=== PATIENT | male | born 1945 | race American Indian/Alaskan Native ===

== ENCOUNTER 2018-01-26 17:25 | Inpatient (IN) | payer MEDICARE ==
[2018-01-26] MEDS ORDERED: NACL 0.9% 500 ML 500 ML ONE (17:57)
[2018-01-26] MEDS ORDERED: NACL 0.9% 1000 ML 500 ML IV ONE (17:59)
[2018-01-26 18:39] LABS: Basophils # (Auto) 0.1 K/mm3 (0.0-0.1); Basophils % (Auto) 2.3 % (0.0-1.8); Eosinophils % (Auto) 1.4 % (0.0-4.3); Hematocrit 34.6 % (35.5-45.6); Hemoglobin 11.4 gm/dl (11.8-15.2); Lymphocytes # (Auto) 0.9 K/mm3 (1.2-5.4); Mean Corpuscular HGB Conc 33 % (32-34); Mean Corpuscular Hemoglobin 26 pg (28-32); Mean Corpuscular Volume 80 fl (84-94); Monocytes # (Auto) 0.3 K/mm3 (0.0-0.8); Monocytes % (Auto) 10.2 % (0.0-7.3); Platelet Count 115 K/mm3 (140-440); Red Blood Count 4.32 M/mm3 (3.65-5.03)
[2018-01-26 18:50] LABS: INR 1.07 (0.87-1.13)
[2018-01-26 18:57] LABS: Calcium 9.1 mg/dL (8.4-10.2)
[2018-01-26] MEDS ORDERED: NACL 0.9% 1000 ML 1,000 ML IV ONE (19:05)
--- NOTE | 2018-01-26 19:08 | Emergency Department Report ---
ED General Adult HPI - General Chief complaint: Dizziness Stated complaint: HEADACHE/DIZZIENESS Time Seen by Provider: 01/26/18 17:56 Source: patient, EMS Mode of arrival: Stretcher Limitations: No Limitations - History of Present Illness Initial comments: This is a 72-year-old male that was sent from his outpatient clinic for evaluation of hypotension and bradycardia. He had a EKG in the clinic which showed sinus bradycardia and PVCs and bigeminy. He states that he has been feeling weak and has had intermittent headaches since the peak metoprolol on Friday. He attributes his symptoms to metoprolol. He is also on Bumex lisinopril and HCTZ. He has a known cardiomyopathy. He does not complain of chest pain or shortness of breath. He does not complain of fever or chills. He denies any chest or abdominal pain. -: days(s) Location: head Radiation: non-radiation Quality: aching Consistency: intermittent, now resolved Improves with: none Worsens with: none Associated Symptoms: weakness - Related Data Home Medications Medication Instructions Recorded Confirmed Last Taken Carvedilol 12.5 mg PO DAILY 02/25/14 02/25/14 02/24/14 08:00 12.5mg Metformin HCl [Metformin] 1,000 mg PO BID 02/25/14 02/25/14 02/24/14 21:00 1000mg Quinapril HCl 20 mg PO DAILY 02/25/14 02/25/14 02/24/14 08:00 20mg Simvastatin 40 mg PO DAILY 02/25/14 02/25/14 02/24/14 08:00 40mg Allergies Allergy/AdvReac Type Severity Reaction Status Date / Time No Known Allergies Allergy Verified 02/25/14 06:21 ED Review of Systems ROS: Stated complaint: HEADACHE/DIZZIENESS Other details as noted in HPI Constitutional: weakness. denies: chills, fever Eyes: denies: eye pain, eye discharge, vision change ENT: denies: ear pain, throat pain Respiratory: denies: cough, shortness of breath, wheezing Cardiovascular: denies: chest pain, palpitations Endocrine: no symptoms reported Gastrointestinal: denies: abdominal pain, nausea, diarrhea Genitourinary: denies: urgency, dysuria Musculoskeletal: other (states chronic ankle ulcer which is painful). denies: back pain, joint swelling, arthralgia Skin: denies: rash, lesions Neurological: headache. denies: weakness, paresthesias Psychiatric: denies: anxiety, depression Hematological/Lymphatic: denies: easy bleeding, easy bruising ED Past Medical Hx - Past Medical History Hx Hypertension: Yes Hx Heart Attack/AMI: Yes Hx Diabetes: Yes Hx of Cancer: Yes (leukemia, prostate) Hx Arthritis: Yes Additional medical history: Peripheral vascular disease - Surgical History Hx Coronary Stent: Yes - Social History Smoking Status: Never Smoker Substance Use Type: None - Medications Home Medications: Home Medications Medication Instructions Recorded Confirmed Last Taken Type Carvedilol 12.5 mg PO DAILY 02/25/14 02/25/14 02/24/14 08:00 History 12.5mg Metformin HCl [Metformin] 1,000 mg PO BID 02/25/14 02/25/14 02/24/14 21:00 History 1000mg Quinapril HCl 20 mg PO DAILY 02/25/14 02/25/14 02/24/14 08:00 History 20mg Simvastatin 40 mg PO DAILY 02/25/14 02/25/14 02/24/14 08:00 History 40mg ED Physical Exam - General Limitations: No Limitations General appearance: alert, in no apparent distress - Head Head exam: Present: atraumatic, normocephalic - Eye Eye exam: Present: normal appearance, PERRL, EOMI. Absent: scleral icterus - ENT ENT exam: Present: mucous membranes moist - Neck Neck exam: Present: normal inspection. Absent: tenderness, meningismus - Respiratory Respiratory exam: Present: normal lung sounds bilaterally. Absent: respiratory distress - Cardiovascular Cardiovascular Exam: Present: regular rate, normal rhythm. Absent: systolic murmur, diastolic murmur, rubs, gallop - GI/Abdominal GI/Abdominal exam: Present: soft, normal bowel sounds. Absent: distended, tenderness, guarding, rebound, rigid - Rectal Rectal exam: Present: deferred - Extremities Exam Extremities exam: Present: other (postinflammatory hyperpigmentation of the affected ankle. Diminished peripheral pulses. No evidence of acute ischemia.) - Back Exam Back exam: Present: normal inspection - Neurological Exam Neurological exam: Present: alert, oriented X3 - Psychiatric Psychiatric exam: Present: normal affect, normal mood - Skin Skin exam: Present: warm, dry, intact, normal color. Absent: rash ED Course Vital Signs 01/26/18 01/26/18 01/26/18 17:33 17:36 17:45 Temperature 97.9 F Pulse Rate 72 64 66 Respiratory 12 15 Rate Blood Pressure 85/51 62/42 O2 Sat by Pulse 99 97 Oximetry 01/26/18 01/26/18 01/26/18 18:01 18:15 18:30 Temperature Pulse Rate 96 H 90 81 Respiratory 11 L 16 17 Rate Blood Pressure 78/45 77/45 O2 Sat by Pulse 96 99 97 Oximetry 01/26/18 01/26/18 01/26/18 18:45 19:00 19:15 Temperature Pulse Rate 69 67 67 Respiratory 18 16 16 Rate Blood Pressure 72/44 72/44 O2 Sat by Pulse 99 98 98 Oximetry 01/26/18 01/26/18 19:31 19:45 Temperature Pulse Rate 63 65 Respiratory 13 16 Rate Blood Pressure 70/47 70/47 O2 Sat by Pulse 97 100 Oximetry - Reevaluation(s) Reevaluation #1: The patient is receiving a volume bolus. His chest x-ray does not reveal decompensation so I believe this should be well tolerated. It is a possibility that he may need a pressor. I have discussed the case with Dr. Gómez who is available for central line placement if necessary. The patient will be admitted by the hospitalist for further care and evaluation. A CT of his head is also pending for his complaint of headache. He was found to be neurologically intact. 01/26/18 20:35 ED Medical Decision Making - Lab Data Result diagrams: 01/26/18 18:17 01/26/18 18:17 Laboratory Results - last 24 hr 01/26/18 01/26/18 01/26/18 18:17 18:17 18:17 WBC 2.6 L RBC 4.32 Hgb 11.4 L Hct 34.6 L MCV 80 L MCH 26 L MCHC 33 RDW 16.0 H Plt Count 115 L Lymph % (Auto) 36.0 H Henry % (Auto) 10.2 H Eos % (Auto) 1.4 Baso % (Auto) 2.3 H Lymph # 0.9 L Henry # 0.3 Eos # 0.0 Baso # 0.1 Seg Neutrophils % 50.1 Seg Neutrophils # 1.3 L PT 14.5 INR 1.07 APTT 30.0 Sodium 137 Potassium 4.5 Chloride 100.2 Carbon Dioxide 21 L Anion Gap 20 BUN 25 H Creatinine 1.7 H Estimated GFR 48 BUN/Creatinine Ratio 15 Glucose 90 Lactic Acid Calcium 9.1 Troponin T 0.034 H 01/26/18 18:17 WBC RBC Hgb Hct MCV MCH MCHC RDW Plt Count Lymph % (Auto) Henry % (Auto) Eos % (Auto) Baso % (Auto) Lymph # Henry # Eos # Baso # Seg Neutrophils % Seg Neutrophils # PT INR APTT Sodium Potassium Chloride Carbon Dioxide Anion Gap BUN Creatinine Estimated GFR BUN/Creatinine Ratio Glucose Lactic Acid 1.70 Calcium Troponin T - EKG Data -: EKG Interpreted by Me EKG shows normal: sinus rhythm - EKG Data Interpretation: other (EKG here shows normal sinus rhythm with not infrequent ectopy and some couplets. Temperature ventricular conduction delay) - Radiology Data interpreted by me: Chest x-ray no acute process Critical care attestation.: If time is entered above; I have spent that time in minutes in the direct care of this critically ill patient, excluding procedure time. ED Disposition Clinical Impression: Pancytopenia, Renal insufficiency Hypotension Qualifiers: Hypotension type: other hypotension type Qualified Code(s): I95.89 - Other hypotension Leukemia Qualifiers: Leukemia type: unspecified Leukemia Active/Remission status: in remission Qualified Code(s): C95.91 - Leukemia, unspecified, in remission Disposition: DC-09 OP ADMIT IP TO THIS HOSP Is pt being admited?: Yes Does the pt Need Aspirin: No (hold aspirin for now low platelets CT head pending ) Condition: Stable Referrals: PRIMARY CARE, [Primary Care Provider] - 3-5 Days Time of Disposition: 20:38
--- NOTE | 2018-01-26 19:20 | XRay Report ---
FINAL REPORT EXAM: XR CHEST 1V AP HISTORY: hypotension TECHNIQUE: Frontal chest x-ray was performed Comparison: None FINDINGS: Normal heart size. Underlying emphysema. Aorta is atheromatous. No focal infiltrates. Upper lobe bullous disease. Imaged axial skeleton is unremarkable. IMPRESSION: Bullous emphysema. No acute cardiopulmonary disease.
[2018-01-26 19:53] LABS: Alanine Aminotransferase 23 units/L (7-56); Albumin 3.9 g/dL (3.9-5); Chol/HDL Ratio 3.36 %
[2018-01-26 19:54] LABS: Bilirubin,Direct < 0.2 mg/dL (0-0.2)
[2018-01-26] MEDS ORDERED: NACL 0.9% 1000 ML 2,000 ML IV ONE (20:32)
--- NOTE | 2018-01-26 21:40 | Cat Scan Report ---
FINAL REPORT PROCEDURE: CT HEAD/BRAIN WO CON TECHNIQUE: Computerized tomography of the head was performed without contrast material. HISTORY: headache COMPARISON: No prior studies are available for comparison. FINDINGS: Skull and scalp: Normal. Paranasal sinuses: Normal. Ventricles and subarachnoid spaces: Are prominent consistent with cerebral atrophy appropriate for patient's age.. Cerebrum: No evidence of hemorrhage, acute infarction or mass . Cerebellum and brainstem: No evidence of hemorrhage, acute infarction or mass. Vasculature: Atherosclerotic calcification is noted involving bilateral internal carotid and right vertebral arteries.. Comments: None. IMPRESSION: No acute intracranial abnormality
[2018-01-27] MEDS ORDERED: TYLENOL ONE (00:04)
[2018-01-27] MEDS ORDERED: TYLENOL PO ONE (00:39)
[2018-01-27 01:36] LABS: Bacteria,Urine 1+ /HPF (Negative); Bilirubin,Urine NEG (Negative); Blood,Urine NEG (Negative); Color,Urine Yellow (Yellow); Mucus,Urine FEW /HPF; Protein,Urine <15 mg/dL mg/dL (Negative); Urobilinogen,Urine < 2.0 mg/dL (<2.0)
[2018-01-27] MEDS ORDERED: TYLENOL PO PRN (01:37)
[2018-01-27] MEDS ORDERED: SODIUM CHLORIDE FLUSH SYRINGE 10 ML IV PRN (01:37)
[2018-01-27] MEDS ORDERED: ZOFRAN IV PRN (01:37)
[2018-01-27] MEDS ORDERED: D50W (25GM) Syringe IV PRN (01:45)
[2018-01-27] MEDS ORDERED: NACL 0.9% 1000 ML 1,000 ML IV SCH (02:00)
--- NOTE | 2018-01-27 05:49 | History and Physical Report ---
History of Present Illness Date of examination: 01/27/18 Date of admission: 01/27/18 01:37 Chief complaint: Low blood pressure History of present illness: Patient is a 72 year old -[place] male with history of hypertension and cardiomyopathy who was sent from his outpatient clinic for evaluation of hypotension and bradycardia. He had an EKG in the clinic which showed sinus bradycardia, PVCs and bigeminy. He states that he has been feeling weak and has had intermittent headaches, LT sided chest pain, sob, palpitations and cough. He attributes his symptoms to the new medication, metoprolol, which he started few days ago. He is also on Bumex, lisinopril and HCTZ. Past History Past Medical History: arthritis, CAD, diabetes, hypertension, other (leukemia and prostate cancer) Past Surgical History: Other (cardiac stent placement) Social history: smoking (quit 15 years ago. He denies alcohol or illicit drug use) Family history: other (reviewed and noncontributory) Medications and Allergies Allergies Allergy/AdvReac Type Severity Reaction Status Date / Time No Known Allergies Allergy Verified 02/25/14 06:21 Home Medications Medication Instructions Recorded Confirmed Last Taken Type Acetaminophen [Tylenol] 500 mg PO Q4HR PRN 01/26/18 01/26/18 Unknown History Albuterol Sulfate [Ventolin HFA] 2 puff IH Q4H PRN 01/26/18 01/26/18 Unknown History Aspirin 81 mg PO DAILY 01/26/18 01/26/18 Unknown History Bumetanide 2 mg PO DAILY PRN 01/26/18 01/26/18 Unknown History Lisinopril/Hydrochlorothiazide 1 tab PO QDAY 01/26/18 01/26/18 Unknown History [Zestoretic 20-25 mg] Metoprolol [Lopressor] 25 mg PO BID 01/26/18 01/26/18 Unknown History Nitroglycerin 0.4 mg SL Q15M PRN MDD 3 01/26/18 01/26/18 Unknown History Pantoprazole [Protonix] 40 mg PO QDAY 01/26/18 01/26/18 Unknown History glipiZIDE [Glipizide] 5 mg PO DAILY 01/26/18 01/26/18 Unknown History metFORMIN [Glucophage] 1,000 mg PO BID 01/26/18 01/26/18 Unknown History tiZANidine [Zanaflex] 4 mg PO TID PRN 01/26/18 01/26/18 Unknown History Active Meds: Active Medications Acetaminophen (Tylenol) 650 mg PO Q4H PRN PRN Reason: Pain MILD(1-3)/Fever >100.5/WHITEHEAD Dextrose (D50w (25gm) Syringe) 50 ml IV PRN PRN PRN Reason: Hypoglycemia Enoxaparin Sodium (Lovenox) 30 mg SUB-Q QDAY ABBEY Sodium Chloride (Nacl 0.9% 1000 Ml) 1,000 mls @ 100 mls/hr IV DIRECT ABBEY Last Admin: 01/27/18 03:12 Dose: 100 mls/hr Insulin Glargine (Lantus) 10 units SUB-Q QHS ABBEY Insulin Human Regular (Humulin R) 0 units SUB-Q ACHS ABBEY; Protocol Ondansetron HCl (Zofran) 4 mg IV Q8H PRN PRN Reason: Nausea And Vomiting Sodium Chloride (Sodium Chloride Flush Syringe 10 Ml) 10 ml IV BID ABBEY Sodium Chloride (Sodium Chloride Flush Syringe 10 Ml) 10 ml IV PRN PRN PRN Reason: LINE FLUSH Review of Systems All systems: negative (except as documented in the HPI, all other systems were reviewed and negative) Exam - Constitutional Vitals: Temp Pulse Resp BP Pulse Ox 97.9 F 97 H 19 110/73 98 01/26/18 17:33 01/27/18 04:31 01/27/18 04:31 01/27/18 04:31 01/27/18 04:31 General appearance: Present: no acute distress - EENT Eyes: Present: PERRL, EOM intact ENT: hearing intact - Neck Neck: Present: supple - Respiratory Respiratory effort: normal Respiratory: bilateral: CTA - Cardiovascular Rhythm: other (bradycardia with regular rhythm) Heart Sounds: Present: S1 & S2. Absent: rub, click - Extremities Extremities: No edema - Abdominal General gastrointestinal: Present: soft, non-tender, non-distended, normal bowel sounds - Integumentary Integumentary: Present: clear, warm, dry - Musculoskeletal Musculoskeletal: gait normal, strength equal bilaterally - Psychiatric Psychiatric: appropriate mood/affect, intact judgment & insight - Neurologic Neurologic: CNII-XII intact, moves all extremities Results - Labs CBC & Chem 7: 01/26/18 18:17 01/26/18 18:17 Labs: Laboratory Last Values WBC 2.6 K/mm3 (4.5-11.0) L 01/26/18 18:17 RBC 4.32 M/mm3 (3.65-5.03) 01/26/18 18:17 Hgb 11.4 gm/dl (11.8-15.2) L 01/26/18 18:17 Hct 34.6 % (35.5-45.6) L 01/26/18 18:17 MCV 80 fl (84-94) L 01/26/18 18:17 MCH 26 pg (28-32) L 01/26/18 18:17 MCHC 33 % (32-34) 01/26/18 18:17 RDW 16.0 % (13.2-15.2) H 01/26/18 18:17 Plt Count 115 K/mm3 (140-440) L 01/26/18 18:17 Lymph % (Auto) 36.0 % (13.4-35.0) H 01/26/18 18:17 Ness % (Auto) 10.2 % (0.0-7.3) H 01/26/18 18:17 Eos % (Auto) 1.4 % (0.0-4.3) 01/26/18 18:17 Baso % (Auto) 2.3 % (0.0-1.8) H 01/26/18 18:17 Lymph # 0.9 K/mm3 (1.2-5.4) L 01/26/18 18:17 Ness # 0.3 K/mm3 (0.0-0.8) 01/26/18 18:17 Eos # 0.0 K/mm3 (0.0-0.4) 01/26/18 18:17 Baso # 0.1 K/mm3 (0.0-0.1) 01/26/18 18:17 Seg Neutrophils % 50.1 % (40.0-70.0) 01/26/18 18:17 Seg Neutrophils # 1.3 K/mm3 (1.8-7.7) L 01/26/18 18:17 PT 14.5 Sec. (12.2-14.9) 01/26/18 18:17 INR 1.07 (0.87-1.13) 01/26/18 18:17 APTT 30.0 Sec. (24.2-36.6) 01/26/18 18:17 Sodium 137 mmol/L (137-145) 01/26/18 18:17 Potassium 4.5 mmol/L (3.6-5.0) 01/26/18 18:17 Chloride 100.2 mmol/L (98-107) 01/26/18 18:17 Carbon Dioxide 21 mmol/L (22-30) L 01/26/18 18:17 Anion Gap 20 mmol/L 01/26/18 18:17 BUN 25 mg/dL (9-20) H 01/26/18 18:17 Creatinine 1.7 mg/dL (0.8-1.5) H 01/26/18 18:17 Estimated GFR 48 ml/min 01/26/18 18:17 BUN/Creatinine Ratio 15 % 01/26/18 18:17 Glucose 90 mg/dL (75-100) 01/26/18 18:17 Lactic Acid 1.70 mmol/L (0.7-2.0) 01/26/18 18:17 Calcium 9.1 mg/dL (8.4-10.2) 01/26/18 18:17 Magnesium 1.60 mg/dL (1.7-2.3) L 01/26/18 18:17 Total Bilirubin 0.30 mg/dL (0.1-1.2) 01/26/18 18:17 Direct Bilirubin < 0.2 mg/dL (0-0.2) 01/26/18 18:17 Indirect Bilirubin 0.1 mg/dL 01/26/18 18:17 AST 21 units/L (5-40) 01/26/18 18:17 ALT 23 units/L (7-56) 01/26/18 18:17 Alkaline Phosphatase 77 units/L (35-129) 01/26/18 18:17 Troponin T 0.027 ng/mL (0.00-0.029) 01/27/18 01:47 NT-Pro-B Natriuret Pep 3722 pg/mL (0-900) H 01/26/18 18:17 Total Protein 6.2 g/dL (6.3-8.2) L 06/18/18 18:17 Albumin 3.9 g/dL (3.9-5) 01/26/18 18:17 Albumin/Globulin Ratio 1.7 % 01/26/18 18:17 Triglycerides 82 mg/dL (2-149) 01/26/18 18:17 Cholesterol 185 mg/dL (50-199) 01/26/18 18:17 LDL Cholesterol Direct 126 mg/dL (50-130) 01/26/18 18:17 HDL Cholesterol 55 mg/dL (40-59) 01/26/18 18:17 Cholesterol/HDL Ratio 3.36 % 01/26/18 18:17 Urine Color Yellow (Yellow) 01/27/18 01:22 Urine Turbidity Clear (Clear) 01/27/18 01:22 Urine pH 5.0 (5.0-7.0) 01/27/18 01:22 Ur Specific [place] 1.014 (1.003-1.030) 01/27/18 01:22 Urine Protein <15 mg/dl mg/dL (Negative) 01/27/18 01:22 Urine Glucose (UA) Neg mg/dL (Negative) 01/27/18 01:22 Urine Ketones Neg mg/dL (Negative) 01/27/18 01:22 Urine Blood Neg (Negative) 01/27/18 01:22 Urine Nitrite Neg (Negative) 01/27/18 01:22 Urine Bilirubin Neg (Negative) 01/27/18 01:22 Urine Urobilinogen < 2.0 mg/dL (<2.0) 01/27/18 01:22 Ur Leukocyte Esterase Neg (Negative) 01/27/18 01:22 Urine WBC (Auto) 10.0 /HPF (0.0-6.0) H 01/27/18 01:22 Urine RBC (Auto) 22.0 /HPF (0.0-6.0) 01/27/18 01:22 U Epithel Cells (Auto) < 1.0 /HPF (0-13.0) 01/27/18 01:22 Urine Bacteria (Auto) 1+ /HPF (Negative) 01/27/18 01:22 Urine Mucus Few /HPF 01/27/18 01:22 Assessment and Plan Assessment and plan: Hypotension secondary to metoprolol use -BP responded to IV fluid boluses -We'll continue maintenance IV fluid with close monitoring of his blood pressure -We will hold all antihypertensives Sinus bradycardia, metoprolol induced -Patient will be monitored on telemetry -We will hold all bradycardic agents Acute kidney injury -Patient will be continued on IV fluid, will monitor his creatinine level Elevated troponin, probably secondary to demand ischemia -We'll continue serial troponin level monitoring Hypomagnesemia -We'll replete magnesium and monitor level [id number] diabetes mellitus type 2 -Patient will be placed on SSI History of cardiomyopathy -No acute exacerbation 38 minutes spent coordinating care
[2018-01-27] MEDS ORDERED: MAGNESIUM SULFATE 1 GM in WATER FOR INJ (PF) 23 ML IV ONE (05:54)
[2018-01-27] MEDS ORDERED: MAGNESIUM SULFATE 1 GM in NACL 0.9% 50 ML IV ONE (07:00)
[2018-01-27] MEDS: HumuLIN R SUB-Q SCH ×4 (08:44→22:48)
[2018-01-27] MEDS: SODIUM CHLORIDE FLUSH SYRINGE 10 ML IV SCH ×2 (10:43→22:51)
--- NOTE | 2018-01-27 12:12 | Consultation ---
History of Present Illness Consult date: 01/27/18 Requesting physician: STAS PEÑA (-) History of present illness: The pt is a 72 YO male with a past medical history significant for CAD s/p PCI of RCA in 02/2014, ICMP, chronic systolic heart failure, frequent PVCs, s/p PVC ablation at [place], HTN, HLP, DM, PVD, GERD, history of leukemia status post chemotherapy, history of prostate cancer status post chemotherapy and radiation , anemia and thrombocytopenia. He was previously followed in our office by Dr. Beatty and is currently followed by [facility], Dr. Terrie Zamora. He presented with c/o generalized fatigue, weakness, dizziness and low BPs. He reports that he was at his outdoor adventure leader's office yesterday when he was noted to have hypotension and bradycardia and was referred to ED for further eval/management. The pt is pending [place] AICD implantation in February per Dr. Arya Cedillo with [facility]. The pt reports that he has a longstanding history of intolerance to beta blockers and that he was recently told to resume lopressor 25mg BID by his [facility] outdoor adventure leader prior to having his AICD implanted. He took the first dose last Friday and developed fatigue, weakness and dizziness so he did not take any more doses over the weekend. He took another dose of lopressor yesterday prior to his appointment and was then noted to have hypotension and bradycardia. He also c/o chest pain, which he describes as a left-sided, intermittent, nonexertional, nonradiating stabbing pain which is chronic and unchanged from baseline. On evaluation, he is in SR and BPs are WNL. Echo done 11/2016 showed EF 25-30%, mild LVH, freq PVCs. LHC and RHC done 10/2017 showed pulmonary HTN, patent RCA stent, mild LI, EF 20%. Holter study done 12/2016 showed 45,273 PVCs in a 24-hour period. Past History Past Medical History: arthritis, CAD, diabetes, heart failure, hypertension, hyperlipidemia, other (leukemia and prostate cancer) Past Surgical History: PTCA Social history: smoking (quit 15 years ago. He denies alcohol or illicit drug use) Medications and Allergies Allergies Allergy/AdvReac Type Severity Reaction Status Date / Time No Known Allergies Allergy Verified 02/25/14 06:21 Home Medications Medication Instructions Recorded Confirmed Last Taken Type Acetaminophen [Tylenol] 500 mg PO Q4HR PRN 01/26/18 01/26/18 Unknown History Albuterol Sulfate [Ventolin HFA] 2 puff IH Q4H PRN 01/26/18 01/26/18 Unknown History Aspirin 81 mg PO DAILY 01/26/18 01/26/18 Unknown History Bumetanide 2 mg PO DAILY PRN 01/26/18 01/26/18 Unknown History Lisinopril/Hydrochlorothiazide 1 tab PO QDAY 01/26/18 01/26/18 Unknown History [Zestoretic 20-25 mg] Metoprolol [Lopressor] 25 mg PO BID 01/26/18 01/26/18 Unknown History Nitroglycerin 0.4 mg SL Q15M PRN MDD 3 01/26/18 01/26/18 Unknown History Pantoprazole [Protonix] 40 mg PO QDAY 01/26/18 01/26/18 Unknown History glipiZIDE [Glipizide] 5 mg PO DAILY 01/26/18 01/26/18 Unknown History metFORMIN [Glucophage] 1,000 mg PO BID 01/26/18 01/26/18 Unknown History tiZANidine [Zanaflex] 4 mg PO TID PRN 01/26/18 01/26/18 Unknown History Active Meds: Active Medications Acetaminophen (Tylenol) 650 mg PO Q4H PRN PRN Reason: Pain MILD(1-3)/Fever >100.5/WHITEHEAD Dextrose (D50w (25gm) Syringe) 50 ml IV PRN PRN PRN Reason: Hypoglycemia Enoxaparin Sodium (Lovenox) 30 mg SUB-Q QDAY [facility] Insulin Glargine (Lantus) 10 units SUB-Q QHS [facility] Insulin Human Regular (Humulin R) 0 units SUB-Q ACHS [facility]; Protocol Last Admin: 01/27/18 08:44 Dose: Not Given Ondansetron HCl (Zofran) 4 mg IV Q8H PRN PRN Reason: Nausea And Vomiting Sodium Chloride (Sodium Chloride Flush Syringe 10 Ml) 10 ml IV BID [facility] Last Admin: 01/27/18 10:43 Dose: 10 ml Sodium Chloride (Sodium Chloride Flush Syringe 10 Ml) 10 ml IV PRN PRN PRN Reason: LINE FLUSH Review of Systems Constitutional: fatigue, weakness, no fever, no chills, no sweats Ears, nose, mouth and throat: no ear pain, no nose pain, no sinus pressure, no sinus pain Cardiovascular: chest pain (chronic), orthopnea (chronic), palpitations (chronic ), lightheadedness, shortness of breath (chronic ), dyspnea on exertion ( chronic ), high blood pressure, decreased exercise tolerance, no edema, no syncope, no leg edema Respiratory: shortness of breath, dyspnea on exertion, no cough, no congestion, no wheezing, no pain on inspiration Gastrointestinal: no abdominal pain, no nausea, no vomiting, no diarrhea, no constipation, no change in bowel habits Genitourinary Male: no dysuria, no hematuria, no flank pain, no discharge, no urinary frequency, no urinary hesitancy Musculoskeletal: no neck stiffness, no neck pain, no shooting arm pain, no arm numbness/tingling, no low back pain, no shooting leg pain, no leg numbness/ tingling, no redness of joints Integumentary: no rash, no pruritis, no redness, no sores, no wounds Neurological: no head injury, no paralysis, no weakness, no parathesias, no numbness, no tingling, no seizures, no syncope Psychiatric: no anxiety Endocrine: no cold intolerance, no heat intolerance Hematologic/Lymphatic: no easy bruising, no easy bleeding Allergic/Immunologic: no urticaria Physical Examination Vital Signs Temp Pulse Resp BP Pulse Ox 97.9 F 56 L 18 85/51 99 01/26/18 17:33 01/26/18 17:33 01/26/18 17:33 01/26/18 17:33 01/26/18 17:33 General appearance: no acute distress HEENT: Positive: PERRL, Normocephaly, Mucus Membranes Moist Neck: Positive: neck supple, trachea midline Cardiac: Positive: Reg Rate and Rhythm, S1/S2 Lungs: Positive: clear to auscultation Neuro: Positive: Grossly Intact, Cranial Nerve 2-12 Intact Abdomen: Positive: Soft. Negative: Tender Skin: Positive: Clear. Negative: Rash, Wound Musculoskeletal: No Pain, Normal Range of Motion Extremities: Present: edema (trace BLE) Results 01/26/18 18:17 01/26/18 18:17 Cardiac Enzymes 01/26/18 Range/Units 18:17 AST 21 (5-40) units/L Coagulation 01/26/18 Range/Units 18:17 PT 14.5 (12.2-14.9) Sec. INR 1.07 (0.87-1.13) APTT 30.0 (24.2-36.6) Sec. Lipids 01/26/18 Range/Units 18:17 Triglycerides 82 (2-149) mg/dL Cholesterol 185 (50-199) mg/dL HDL Cholesterol 55 (40-59) mg/dL Cholesterol/HDL Ratio 3.36 % CBC 01/26/18 Range/Units 18:17 WBC 2.6 L (4.5-11.0) K/mm3 RBC 4.32 (3.65-5.03) M/mm3 Hgb 11.4 L (11.8-15.2) gm/dl Hct 34.6 L (35.5-45.6) % Plt Count 115 L (140-440) K/mm3 Lymph # 0.9 L (1.2-5.4) K/mm3 [place] # 0.3 (0.0-0.8) K/mm3 Eos # 0.0 (0.0-0.4) K/mm3 Baso # 0.1 (0.0-0.1) K/mm3 Comprehensive Metabolic Panel 01/26/18 01/26/18 Range/Units 18:17 18:17 Sodium 137 (137-145) mmol/L Potassium 4.5 (3.6-5.0) mmol/L Chloride 100.2 (98-107) mmol/L Carbon Dioxide 21 L (22-30) mmol/L BUN 25 H (9-20) mg/dL Creatinine 1.7 H (0.8-1.5) mg/dL Glucose 90 (75-100) mg/dL Calcium 9.1 (8.4-10.2) mg/dL Direct Bilirubin < 0.2 (0-0.2) mg/dL Indirect Bilirubin 0.1 mg/dL AST 21 (5-40) units/L ALT 23 (7-56) units/L Alkaline Phosphatase 77 (35-129) units/L Total Protein 6.2 L (6.3-8.2) g/dL Albumin 3.9 (3.9-5) g/dL - Imaging and Cardiology Echo: report reviewed (11/2016 showed EF 25-30%, mild LVH, freq PVCs. ) Cardiac cath: report reviewed (LHC and RHC done 10/2017 showed pulmonary HTN, patent RCA stent, mild LI, EF 20%.) EKG: report reviewed, image reviewed EKG interpretations - Telemetry EKG Rhythm: Sinus Rhythm - EKG Sinus rhythms and dysrhythmias: sinus rhythm Ventricular dysrhythmias: ventricular premature com (frequent) Assessment and Plan Assessment: Hypotension - improved Sinus bradycardia - improved Dizziness - improved; head CT with NAF Chronic systolic heart failure ICMP - EF 20% CAD s/p PCI of RCA in 02/2014, Frequent PVCs, s/p PVC ablation at [facility] [place] Minimally elevated troponins Chest pain, atypical - recurrent; ECG with no acute ischemic changes H/o HTN HLP DM PVD GERD Thrombocytopenia - chronic History of leukemia status post chemotherapy, history of prostate cancer status post chemotherapy and radiation Plan: BP and HR currently WNL. D/c IVF. Hold home anti-hypertensives and continue to monitor on telemetry overnight. Replete serum Mg. The patient has been seen in conjunction with Dr. Masterson who agrees with the assessment and plan of care.
[2018-01-27] MEDS ORDERED: LOVENOX SUB-Q ONE (12:49)
[2018-01-27] MEDS: LOVENOX SUB-Q SCH (12:53)
[2018-01-27] MEDS ORDERED: HumuLIN R ONE ×2 (12:54→12:55)
--- NOTE | 2018-01-27 16:30 | Progress Note ---
Assessment and Plan Assessment and plan: Patient is a 72 year old -Filipino man with history of hypertension and cardiomyopathy who was sent from his outpatient clinic for evaluation of hypotension and bradycardia. He had an EKG in the clinic which showed sinus bradycardia, PVCs and bigeminy. He states that he has been feeling weak and has had intermittent headaches, LT sided chest pain, sob, palpitations and cough. He attributes his symptoms to the new medication, metoprolol, which he started few days ago. He is also on Bumex, lisinopril and HCTZ. Hypotension secondary to metoprolol use -BP responded to IV fluid boluses -We'll continue maintenance IV fluid with close monitoring of his blood pressure -We will hold all antihypertensives Sinus bradycardia, metoprolol induced -Patient will be monitored on telemetry -We will hold all bradycardic agents Acute kidney injury -Patient will be continued on IV fluid, will monitor his creatinine level Elevated troponin, probably secondary to demand ischemia -We'll continue serial troponin level monitoring Hypomagnesemia -We'll replete magnesium and monitor level [id number] diabetes mellitus type 2 -Patient will be placed on SSI History of cardiomyopathy -No acute exacerbation Plan: BP and HR currently WNL. D/c IVF. Hold home anti-hypertensives and continue to monitor on telemetry overnight. Replete serum Mg. History Interval history: Patient was seen and examined. Follow-up on current diagnosis. Overnight uneventful. Patient denies any chest pain, shortness breath, nausea/vomiting or severe headaches. Imaging, nursing note, chart, labs and old chart reviewed. Discussed with patient. Hospitalist Physical - Physical exam Narrative exam: GEN: WDWN, NAD, Awake, Alert, Orientated x 3 HEENT: NCAT, EOMI, PERRL, OP Clear NECK: supple, no adenopathy, no thyromegaly, no JVD CVS/HEART: RRR, normal S1S2, pulses present bilaterally CHEST/LUNGS: CTA B, Symmetrical chest expansion, good air entry bilaterally GI/Abdomen: soft, NTND, good bowel sounds, no guarding or rebound /Bladder: no suprapubic tenderness, no CVA or paraspinal tenderness EXT/Skin: trace pretibia edema, no obvious rash MSK: FROM x 4 Neuro: CN 2-12 grossly intact, no new focal deficits Psych: calm - Constitutional Vitals: Temp Pulse Resp BP Pulse Ox 98.5 F 93 H 19 110/87 100 01/27/18 08:00 01/27/18 16:00 01/27/18 16:00 01/27/18 16:00 01/27/18 16:00 General appearance: Present: no acute distress Results - Labs CBC & Chem 7: 01/26/18 18:17 18 18:17 Labs: Laboratory Last Values WBC 2.6 K/mm3 (4.5-11.0) L 01/26/18 18:17 RBC 4.32 M/mm3 (3.65-5.03) 01/26/18 18:17 Hgb 11.4 gm/dl (11.8-15.2) L 01/26/18 18:17 Hct 34.6 % (35.5-45.6) L 01/26/18 18:17 MCV 80 fl (84-94) L 01/26/18 18:17 MCH 26 pg (28-32) L 01/26/18 18:17 MCHC 33 % (32-34) 01/26/18 18:17 RDW 16.0 % (13.2-15.2) H 01/26/18 18:17 Plt Count 115 K/mm3 (140-440) L 01/26/18 18:17 Lymph % (Auto) 36.0 % (13.4-35.0) H 01/26/18 18:17 [place] % (Auto) 10.2 % (0.0-7.3) H 01/26/18 18:17 Eos % (Auto) 1.4 % (0.0-4.3) 01/26/18 18:17 Baso % (Auto) 2.3 % (0.0-1.8) H 18 18:17 Lymph # 0.9 K/mm3 (1.2-5.4) L 18 18:17 [place] # 0.3 K/mm3 (0.0-0.8) 18 18:17 Eos # 0.0 K/mm3 (0.0-0.4) 01/26/18 18:17 Baso # 0.1 K/mm3 (0.0-0.1) 01/26/18 18:17 Seg Neutrophils % 50.1 % (40.0-70.0) 01/26/18 18:17 Seg Neutrophils # 1.3 K/mm3 (1.8-7.7) L 01/26/18 18:17 PT 14.5 Sec. (12.2-14.9) 01/26/18 18:17 INR 1.07 (0.87-1.13) 01/26/18 18:17 APTT 30.0 Sec. (24.2-36.6) 01/26/18 18:17 Sodium 137 mmol/L (137-145) 01/26/18 18:17 Potassium 4.5 mmol/L (3.6-5.0) 01/26/18 18:17 Chloride 100.2 mmol/L (98-107) 01/26/18 18:17 Carbon Dioxide 21 mmol/L (22-30) L 01/26/18 18:17 Anion Gap 20 mmol/L 01/26/18 18:17 BUN 25 mg/dL (9-20) H 01/26/18 18:17 Creatinine 1.7 mg/dL (0.8-1.5) H 01/26/18 18:17 Estimated GFR 48 ml/min 01/26/18 18:17 BUN/Creatinine Ratio 15 % 01/26/18 18:17 Glucose 90 mg/dL (75-100) 01/26/18 18:17 POC Glucose 171 (70-105) H 01/27/18 12:53 Lactic Acid 1.70 mmol/L (0.7-2.0) 01/26/18 18:17 Calcium 9.1 mg/dL (8.4-10.2) 01/26/18 18:17 Magnesium 1.60 mg/dL (1.7-2.3) L 01/26/18 18:17 Total Bilirubin 0.30 mg/dL (0.1-1.2) 01/26/18 18:17 Direct Bilirubin < 0.2 mg/dL (0-0.2) 01/26/18 18:17 Indirect Bilirubin 0.1 mg/dL 01/26/18 18:17 AST 21 units/L (5-40) 01/26/18 18:17 ALT 23 units/L (7-56) 01/26/18 18:17 Alkaline Phosphatase 77 units/L (35-129) 01/26/18 18:17 Troponin T 0.022 ng/mL (0.00-0.029) 01/27/18 09:44 NT-Pro-B Natriuret Pep 3722 pg/mL (0-900) H 01/26/18 18:17 Total Protein 6.2 g/dL (6.3-8.2) L 01/26/18 18:17 Albumin 3.9 g/dL (3.9-5) 01/26/18 18:17 Albumin/Globulin Ratio 1.7 % 01/26/18 18:17 Triglycerides 82 mg/dL (2-149) 01/26/18 18:17 Cholesterol 185 mg/dL (50-199) 01/26/18 18:17 LDL Cholesterol Direct 126 mg/dL (50-130) 01/26/18 18:17 HDL Cholesterol 55 mg/dL (40-59) 01/26/18 18:17 Cholesterol/HDL Ratio 3.36 % 01/26/18 18:17 Urine Color Yellow (Yellow) 01/27/18 01:22 Urine Turbidity Clear (Clear) 01/27/18 01:22 Urine pH 5.0 (5.0-7.0) 01/27/18 01:22 Ur Specific [place] 1.014 (1.003-1.030) 01/27/18 01:22 Urine Protein <15 mg/dl mg/dL (Negative) 01/27/18 01:22 Urine Glucose (UA) Neg mg/dL (Negative) 01/27/18 01:22 Urine Ketones Neg mg/dL (Negative) 01/27/18 01:22 Urine Blood Neg (Negative) 01/27/18 01:22 Urine Nitrite Neg (Negative) 01/27/18 01:22 Urine Bilirubin Neg (Negative) 01/27/18 01:22 Urine Urobilinogen < 2.0 mg/dL (<2.0) 01/27/18 01:22 Ur Leukocyte Esterase Neg (Negative) 01/27/18 01:22 Urine WBC (Auto) 10.0 /HPF (0.0-6.0) H 01/27/18 01:22 Urine RBC (Auto) 22.0 /HPF (0.0-6.0) 01/27/18 01:22 U Epithel Cells (Auto) < 1.0 /HPF (0-13.0) 01/27/18 01:22 Urine Bacteria (Auto) 1+ /HPF (Negative) 01/27/18 01:22 Urine Mucus Few /HPF 01/27/18 01:22
[2018-01-27] MEDS: LANTUS SUB-Q SCH (22:46)
[2018-01-28] MEDS: HumuLIN R SUB-Q SCH ×3 (07:30→22:20)
--- NOTE | 2018-01-28 09:27 | Progress Note ---
Assessment and Plan Assessment and plan: Patient is a 72 year old man with history of hypertension, chronic systolic heart failure, CAD s/p RCA stent and cardiomyopathy who was sent from his outpatient clinic for evaluation of hypotension and bradycardia. He had an EKG in the clinic which showed sinus bradycardia, PVCs and bigeminy. He states that he has been feeling weak and has had intermittent headaches, LT sided chest pain, sob, palpitations and cough. He attributes his symptoms to the new medication, metoprolol, which he started few days ago. He is also on Bumex, lisinopril and HCTZ. * Echo done 11/2016 showed EF 25-30%, mild LVH, freq PVCs. * LHC and RHC done 10/2017 showed pulmonary HTN, patent RCA stent, mild LI, EF 20 %. * Holter study done 12/2016 showed 45,273 PVCs in a 24-hour period. Hypotension secondary to metoprolol use -BP responded to IV fluid boluses -We'll continue maintenance IV fluid with close monitoring of his blood pressure -We will hold all antihypertensives Sinus bradycardia, metoprolol induced -Patient will be monitored on telemetry -We will hold all bradycardic agents Acute kidney injury, vasomotor nephropathy, poa -Patient will be continued on IV fluid, will monitor his creatinine level Elevated troponin, probably secondary to demand ischemia -We'll continue serial troponin level monitoring Hypomagnesemia -We'll replete magnesium and monitor level [id number] diabetes mellitus type 2 -Patient will be placed on SSI History of cardiomyopathy -No acute exacerbation Afib/aFlutter with RVR -notify Cardiology to manage Chest pains -Cardiology to follow up Labs are pending==>reviewed Cardiology's Plan: Pt noted to have a bout of SVT this AM. He continues to have frequent PVCs. It appears that he is not able to tolerate beta blockers. He is scheduled to undergo AICD implantation at [facility] per Dr. Arya Cedillo in February but may benefit from AICD implantation sooner. Transfer to [facility] for AICD implantation now is preferable. Awaiting call back from Dr. Cedillo regarding further management. History Interval history: Patient was seen and examined. Follow-up on current diagnosis. Overnight uneventful. Patient denies any chest pain, shortness breath, nausea/vomiting or severe headaches. Imaging, nursing note, chart, labs and old chart reviewed. Discussed with patient. Tele monitor Frequent PVC and burst of afib with rvr and now in [facility] Hospitalist Physical - Physical exam Narrative exam: GEN: WDWN, NAD, Awake, Alert, Orientated x 3 HEENT: NCAT, EOMI, PERRL, OP Clear NECK: supple, no adenopathy, no thyromegaly, no JVD CVS/HEART: RRR, normal S1S2, pulses present bilaterally CHEST/LUNGS: CTA B, Symmetrical chest expansion, good air entry bilaterally GI/Abdomen: soft, NTND, good bowel sounds, no guarding or rebound /Bladder: no suprapubic tenderness, no CVA or paraspinal tenderness EXT/Skin: trace pretibia edema, no obvious rash MSK: FROM x 4 Neuro: CN 2-12 grossly intact, no new focal deficits Psych: calm - Constitutional Vitals: Temp Pulse Resp BP Pulse Ox 99.2 F 88 16 108/78 97 01/28/18 07:20 01/28/18 08:00 01/28/18 07:20 01/28/18 08:00 01/28/18 08:00 General appearance: Present: no acute distress Results - Labs CBC & Chem 7: 01/26/18 18:17 01/28/18 07:58 Labs: Laboratory Last Values WBC 2.6 K/mm3 (4.5-11.0) L 01/26/18 18:17 RBC 4.32 M/mm3 (3.65-5.03) 01/26/18 18:17 Hgb 11.4 gm/dl (11.8-15.2) L 01/26/18 18:17 Hct 34.6 % (35.5-45.6) L 18 18:17 MCV 80 fl (84-94) L 18 18:17 MCH 26 pg (28-32) L 18 18:17 MCHC 33 % (32-34) 01/26/18 18:17 RDW 16.0 % (13.2-15.2) H 01/26/18 18:17 Plt Count 115 K/mm3 (140-440) L 01/26/18 18:17 Lymph % (Auto) 36.0 % (13.4-35.0) H 01/26/18 18:17 [place] % (Auto) 10.2 % (0.0-7.3) H 01/26/18 18:17 Eos % (Auto) 1.4 % (0.0-4.3) 01/26/18 18:17 Baso % (Auto) 2.3 % (0.0-1.8) H 01/26/18 18:17 Lymph # 0.9 K/mm3 (1.2-5.4) L 01/26/18 18:17 [place] # 0.3 K/mm3 (0.0-0.8) 01/26/18 18:17 Eos # 0.0 K/mm3 (0.0-0.4) 01/26/18 18:17 Baso # 0.1 K/mm3 (0.0-0.1) 01/26/18 18:17 Seg Neutrophils % 50.1 % (40.0-70.0) 01/26/18 18:17 Seg Neutrophils # 1.3 K/mm3 (1.8-7.7) L 01/26/18 18:17 PT 14.5 Sec. (12.2-14.9) 01/26/18 18:17 INR 1.07 (0.87-1.13) 01/26/18 18:17 APTT 30.0 Sec. (24.2-36.6) 01/26/18 18:17 Sodium 137 mmol/L (137-145) 01/26/18 18:17 Potassium 4.5 mmol/L (3.6-5.0) 01/26/18 18:17 Chloride 100.2 mmol/L (98-107) 01/26/18 18:17 Carbon Dioxide 21 mmol/L (22-30) L 01/26/18 18:17 Anion Gap 20 mmol/L 01/26/18 18:17 BUN 25 mg/dL (9-20) H 01/26/18 18:17 Creatinine 1.7 mg/dL (0.8-1.5) H 01/26/18 18:17 Estimated GFR 48 ml/min 01/26/18 18:17 BUN/Creatinine Ratio 15 % 01/26/18 18:17 Glucose 90 mg/dL (75-100) 01/26/18 18:17 POC Glucose 137 (70-105) H 01/28/18 06:38 Lactic Acid 1.70 mmol/L (0.7-2.0) 01/26/18 18:17 Calcium 9.1 mg/dL (8.4-10.2) 01/26/18 18:17 Magnesium 1.60 mg/dL (1.7-2.3) L 01/26/18 18:17 Total Bilirubin 0.30 mg/dL (0.1-1.2) 01/26/18 18:17 Direct Bilirubin < 0.2 mg/dL (0-0.2) 01/26/18 18:17 Indirect Bilirubin 0.1 mg/dL 01/26/18 18:17 AST 21 units/L (5-40) 01/26/18 18:17 ALT 23 units/L (7-56) 01/26/18 18:17 Alkaline Phosphatase 77 units/L (35-129) 01/26/18 18:17 Troponin T 0.022 ng/mL (0.00-0.029) 01/27/18 09:44 NT-Pro-B Natriuret Pep 3722 pg/mL (0-900) H 01/26/18 18:17 Total Protein 6.2 g/dL (6.3-8.2) L 01/26/18 18:17 Albumin 3.9 g/dL (3.9-5) 01/26/18 18:17 Albumin/Globulin Ratio 1.7 % 01/26/18 18:17 Triglycerides 82 mg/dL (2-149) 01/26/18 18:17 Cholesterol 185 mg/dL (50-199) 01/26/18 18:17 LDL Cholesterol Direct 126 mg/dL (50-130) 01/26/18 18:17 HDL Cholesterol 55 mg/dL (40-59) 01/26/18 18:17 Cholesterol/HDL Ratio 3.36 % 01/26/18 18:17 Urine Color Yellow (Yellow) 01/27/18 01:22 Urine Turbidity Clear (Clear) 01/27/18 01:22 Urine pH 5.0 (5.0-7.0) 01/27/18 01:22 Ur Specific [place] 1.014 (1.003-1.030) 01/27/18 01:22 Urine Protein <15 mg/dl mg/dL (Negative) 01/27/18 01:22 Urine Glucose (UA) Neg mg/dL (Negative) 01/27/18 01:22 Urine Ketones Neg mg/dL (Negative) 01/27/18 01:22 Urine Blood Neg (Negative) 01/27/18 01:22 Urine Nitrite Neg (Negative) 01/27/18 01:22 Urine Bilirubin Neg (Negative) 01/27/18 01:22 Urine Urobilinogen < 2.0 mg/dL (<2.0) 01/27/18 01:22 Ur Leukocyte Esterase Neg (Negative) 01/27/18 01:22 Urine WBC (Auto) 10.0 /HPF (0.0-6.0) H 01/27/18 01:22 Urine RBC (Auto) 22.0 /HPF (0.0-6.0) 01/27/18 01:22 U Epithel Cells (Auto) < 1.0 /HPF (0-13.0) 01/27/18 01:22 Urine Bacteria (Auto) 1+ /HPF (Negative) 01/27/18 01:22 Urine Mucus Few /HPF 01/27/18 01:22
[2018-01-28] MEDS: SODIUM CHLORIDE FLUSH SYRINGE 10 ML IV SCH ×2 (10:00→22:21)
[2018-01-28] MEDS: LOVENOX SUB-Q SCH (10:34)
[2018-01-28] MEDS ORDERED: PNEUMOVAX 23 IM ONE (12:00)
[2018-01-28 12:06] LABS: Calcium 9.3 mg/dL (8.4-10.2)
--- NOTE | 2018-01-28 13:14 | Progress Note ---
Assessment and Plan Assessment: Hypotension - improved Sinus bradycardia - improved Dizziness - improved; head CT with NAF Transient SVT Chronic systolic heart failure ICMP - EF 20% CAD s/p PCI of RCA in 02/2014, Frequent PVCs, s/p PVC ablation at [facility] [place] Minimally elevated troponins Chest pain, atypical - recurrent; ECG with no acute ischemic changes H/o HTN HLP DM PVD GERD Thrombocytopenia - chronic History of leukemia status post chemotherapy, history of prostate cancer status post chemotherapy and radiation Plan: Pt noted to have a bout of SVT this AM. He continues to have frequent PVCs. It appears that he is not able to tolerate beta blockers. He is scheduled to undergo AICD implantation at [facility] per Dr. Arya Cedillo in February but may benefit from AICD implantation sooner. Transfer to [facility] for AICD implantation now is preferable. Awaiting call back from [facility] regarding further management. Will initiate amiodarone for more adequate HR control. The patient has been seen in conjunction with Dr. Durham who agrees with the assessment and plan of care. Subjective Date of service: 01/28/18 Principal diagnosis: hypotension, bradycardia, PVCs, SVT Interval history: Pt resting comfortably up in chair, no current cardiac complaints. tele reviewed - pt had frequent PVCs overnight with a bout of SVT this AM. pt reports that he drank coffee this am and then felt some palpitations. Objective Last Vital Signs Temp 98.9 F 01/28/18 11:44 Pulse 65 01/28/18 11:44 Resp 16 01/28/18 11:44 BP 103/62 01/28/18 11:44 Pulse Ox 97 01/28/18 11:44 - Physical Examination General: No Apparent Distress HEENT: Positive: PERRL, Normocephaly, Mucus Membranes Moist Neck: Positive: neck supple, trachea midline Cardiac: Positive: Reg Rate and Rhythm, S1/S2 Neuro: Positive: Grossly Intact, Cranial Nerve 2-12 Intact Abdomen: Positive: Soft. Negative: Tender Skin: Positive: Clear. Negative: Rash, Wound Musculoskeletal: No Pain, Normal Range of Motion Extremities: Present: edema (trace BLE) - Labs and Meds Comprehensive Metabolic Panel 01/28/18 Range/Units 07:58 Sodium 140 (137-145) mmol/L Potassium 4.5 (3.6-5.0) mmol/L Chloride 104.5 (98-107) mmol/L Carbon Dioxide 20 L (22-30) mmol/L BUN 18 (9-20) mg/dL Creatinine 1.4 (0.8-1.5) mg/dL Glucose 141 H (75-100) mg/dL Calcium 9.3 (8.4-10.2) mg/dL - Imaging and Cardiology EKG: report reviewed, image reviewed Echo: report reviewed (11/2016 showed EF 25-30%, mild LVH, freq PVCs. ) Cardiac cath: report reviewed (LHC and RHC done 10/2017 showed pulmonary HTN, patent RCA stent, mild LI, EF 20%.) - EKG Sinus rhythms and dysrhythmias: sinus rhythm Ventricular dysrhythmias: ventricular premature com (frequent)
[2018-01-28] MEDS ORDERED: CORDARONE 150 MG in D5W 100 ML IV ONE (15:09)
--- NOTE | 2018-01-28 15:36 | Event Note ---
Date: 01/28/18 Pt to be transferred to [facility] where Dr. Galileo Gonzalez ( distribution dispatcher) will be accepting physician. Terrie BERTRAND NP / DR. JAEGER
--- NOTE | 2018-01-28 15:59 | Discharge Summary ---
Providers - Providers Date of Admission: 01/27/18 01:37 Date of discharge: 01/29/18 Attending physician: STAS PEÑA Primary care physician: FOOD PORTER Hospitalization Condition: Stable Hospital course: Patient is a 72 year old man with history of hypertension, cancer, chronic systolic heart failure, CAD s/p RCA stent and cardiomyopathy who was sent from his outpatient clinic for evaluation of hypotension and bradycardia. He had an EKG in the clinic which showed sinus bradycardia, PVCs and bigeminy. He states that he has been feeling weak and has had intermittent headaches, LT sided chest pain, sob, palpitations and cough. He attributes his symptoms to the new medication, metoprolol, which he started few days ago. He is also on Bumex, lisinopril and HCTZ. * Echo done 11/2016 showed EF 25-30%, mild LVH, freq PVCs. * LHC and RHC done 10/2017 showed pulmonary HTN, patent RCA stent, mild LI, EF 20 %. * Holter study done 12/2016 showed 45,273 PVCs in a 24-hour period. Hypotension secondary to metoprolol use -BP responded to IV fluid boluses -We'll continue maintenance IV fluid with close monitoring of his blood pressure -We will hold all antihypertensives Sinus bradycardia, metoprolol induced -Patient will be monitored on telemetry -We will hold all bradycardic agents Acute kidney injury, vasomotor nephropathy, poa -Patient will be continued on IV fluid, will monitor his creatinine level Chronic systolic heart failure Elevated troponin, probably secondary to demand ischemia -We'll continue serial troponin level monitoring Hypomagnesemia -We'll replete magnesium and monitor level [id number] diabetes mellitus type 2 -Patient will be placed on SSI History of cardiomyopathy -No acute exacerbation Afib/aFlutter with RVR -notify Cardiology to manage Chest pains -Cardiology to follow up Labs are pending==>reviewed Cardiology's Plan: Pt noted to have a bout of SVT this AM. He continues to have frequent PVCs. It appears that he is not able to tolerate beta blockers. He is scheduled to undergo AICD implantation at [facility] per Dr. Arya Cedillo in February but may benefit from AICD implantation sooner. Transfer to [facility] for AICD implantation now is preferable. Awaiting call back from Dr. Cedillo regarding further management. Disposition: [id number]/[id number] ANOTHER TYPE HLTHCARE Time spent for discharge: 34 minutes Core Measure Documentation - Palliative Care Palliative Care/ Comfort Measures: Not Applicable - Core Measures Any of the following diagnoses?: heart failure - VTE Discharge Requirements Deep Vein Thrombosis/Pulmonary Embolism Present on Admission: No Has pt received <5 days of overlap therapy or INR<2.0: No Anticoagulant overlap therapy prescribed at discharge: No Contraindication No Overlap Therapy order at DC: Not Indicated - Heart Failure Discharge Requirements RUTH ANN/ARB for LVSD if EF <40%: No Reason for no RUTH ANN/ARB: Hypotension Beta belinda at discharge: No Reason for no beta belinda on DC: Hypotension Exam - Physical Exam Narrative exam: GEN: WDWN, NAD, Awake, Alert, Orientated x 3 HEENT: NCAT, EOMI, PERRL, OP Clear NECK: supple, no adenopathy, no thyromegaly, no JVD CVS/HEART: RRR, normal S1S2, pulses present bilaterally CHEST/LUNGS: CTA B, Symmetrical chest expansion, good air entry bilaterally GI/Abdomen: soft, NTND, good bowel sounds, no guarding or rebound /Bladder: no suprapubic tenderness, no CVA or paraspinal tenderness EXT/Skin: trace pretibia edema, no obvious rash MSK: FROM x 4 Neuro: CN 2-12 grossly intact, no new focal deficits Psych: calm - Constitutional Vitals: Temp Pulse Resp BP Pulse Ox 98.9 F 65 16 103/62 97 01/28/18 11:44 01/28/18 11:44 01/28/18 11:44 01/28/18 11:44 01/28/18 11:44 Plan Activity: other (no strenous activity) Diet: low salt Follow up with: PRIMARY CAREMD [Primary Care Provider] - 3-5 Days
[2018-01-28] MEDS: CORDARONE PO SCH (22:20)
[2018-01-28] MEDS: LANTUS SUB-Q SCH (22:21)
--- NOTE | 2018-01-29 09:50 | Progress Note ---
Assessment and Plan Assessment: Hypotension - improved Sinus bradycardia - improved Dizziness - improved; head CT with NAF Transient SVT Chronic systolic heart failure ICMP - EF 20% CAD s/p PCI of RCA in 02/2014, Frequent PVCs, s/p PVC ablation at [facility] Minimally elevated troponins Chest pain, atypical - recurrent; ECG with no acute ischemic changes H/o HTN HLP DM PVD GERD Thrombocytopenia - chronic History of leukemia status post chemotherapy, history of prostate cancer status post chemotherapy and radiation Plan: Currently stable cardiac status. Cont present cardiac management. Await tx to [facility]. The patient has been seen in conjunction with Dr. Durham who agrees with the assessment and plan of care. Subjective Date of service: 01/29/18 Principal diagnosis: hypotension, bradycardia, PVCs, SVT Interval history: Pt resting comfortably at bedside, awaiting transfer to [facility]. tele reviewed - pt remains in SR, continues to have frequent PVCs, no SVT noted overnight. Objective Last Vital Signs Temp 98.3 F 01/29/18 08:21 Pulse 110 H 01/29/18 08:21 Resp 19 01/29/18 08:21 BP 128/87 01/29/18 08:21 Pulse Ox 96 01/29/18 08:21 - Physical Examination General: No Apparent Distress HEENT: Positive: PERRL, Normocephaly, Mucus Membranes Moist Neck: Positive: neck supple, trachea midline Cardiac: Positive: Reg Rate and Rhythm, S1/S2 Lungs: Positive: clear to auscultation Neuro: Positive: Grossly Intact, Cranial Nerve 2-12 Intact Abdomen: Positive: Soft. Negative: Tender Skin: Positive: Clear. Negative: Rash, Wound Musculoskeletal: No Pain, Normal Range of Motion Extremities: Present: edema (trace BLE) - Labs and Meds Comprehensive Metabolic Panel 01/28/18 Range/Units 07:58 Sodium 140 (137-145) mmol/L Potassium 4.5 (3.6-5.0) mmol/L Chloride 104.5 (98-107) mmol/L Carbon Dioxide 20 L (22-30) mmol/L BUN 18 (9-20) mg/dL Creatinine 1.4 (0.8-1.5) mg/dL Glucose 141 H (75-100) mg/dL Calcium 9.3 (8.4-10.2) mg/dL - Imaging and Cardiology EKG: report reviewed, image reviewed Echo: report reviewed (11/2016 showed EF 25-30%, mild LVH, freq PVCs. ) Cardiac cath: report reviewed (LHC and RHC done 10/2017 showed pulmonary HTN, patent RCA stent, mild LI, EF 20%.) - Telemetry EKG Rhythm: Sinus Rhythm - EKG Sinus rhythms and dysrhythmias: sinus rhythm Ventricular dysrhythmias: ventricular premature com (frequent)
[2018-01-29] MEDS: CORDARONE PO SCH (09:53)
[2018-01-29] MEDS: SODIUM CHLORIDE FLUSH SYRINGE 10 ML IV SCH (09:53)
[2018-01-29] MEDS ORDERED: LOVENOX SUB-Q SCH (10:00)
[2018-01-29 17:48] VITALS: BP 126/88
== END 2018-01-29 22:44 | disposition other institution (70) | DRG 308 ==
LOC: ED 17:25 → 4A 01-27 01:37
PROVIDERS: ADMIT Internal Medicine; ATTEND Internal Medicine
DX: R00.1 Bradycardia, unspecified (principal); N17.0 Acute kidney failure with tubular necrosis; I24.8 Other forms of acute ischemic heart disease; D61.818 Other pancytopenia; I50.22 Chronic systolic (congestive) heart failure; I95.2 Hypotension due to drugs; I48.92 Unspecified atrial flutter; I11.0 Hypertensive heart disease with heart failure; I25.10 Atherosclerotic heart disease of native coronary artery without angina pectoris; Z95.5 Presence of coronary angioplasty implant and graft; R00.8 Other abnormalities of heart beat; T44.7X5A Adverse effect of beta-adrenoreceptor antagonists, initial encounter; Y92.89 Other specified places as the place of occurrence of the external cause; E83.42 Hypomagnesemia; I48.91 Unspecified atrial fibrillation; Z79.82 Long term (current) use of aspirin; I25.5 Ischemic cardiomyopathy; E78.5 Hyperlipidemia, unspecified; E11.51 Type 2 diabetes mellitus with diabetic peripheral angiopathy without gangrene; K21.9 Gastro-esophageal reflux disease without esophagitis; Z92.21 Personal history of antineoplastic chemotherapy; Z85.6 Personal history of leukemia; Z85.46 Personal history of malignant neoplasm of prostate; Z92.3 Personal history of irradiation; M19.90 Unspecified osteoarthritis, unspecified site; Z87.891 Personal history of nicotine dependence; I47.1 Supraventricular tachycardia
CPT/HCPCS: 36415; 70450; 71045; 80048; 80061; 80074; 81001; 82140; 82962; 83735; 83880; 84484; 85025; 85610; 85730; 87040; 87086; 90732; 93005; 93010; 96360; 96361; J0282; J1650; J1815; J3475; J7030; J7040